=== PATIENT | female | born 1995 | race Caucasian/White ===

== ENCOUNTER 2020-06-15 13:36 | Emergency (ER) | payer MEDICAID ==
[~2020-06-15] VITALS: Ht 154.9 cm; Wt 53.9 kg
[~2020-06-15 13:36] MED LIST: LIDOcaine 1% W/epiNEPHrine 1:100,000 20ml vial ONE
[2020-06-15] MEDS ORDERED: sulfamethoxazole/trimethoprim DS (800/160mg) tablet PO ONE (19:45)
[2020-06-15] MEDS ORDERED: SULF1TAB49 PO (19:48)
--- NOTE | 2020-06-15 20:04 | NUR ---
Pt verbalized understanding of DC orders. No questions nor concerns.
[2020-06-15 20:21] VITALS: BP 100/73
== END 2020-06-15 20:02 | disposition home or self-care (01) ==
LOC: ER 13:37
DX: H60.02 Abscess of left external ear (principal); Z79.899 Other long term (current) drug therapy
CPT/HCPCS: 69000; 99283